=== PATIENT | female | born 1990 | race Caucasian/White ===

== ENCOUNTER 2021-10-17 04:07 | Inpatient (IN) ==
[2021-10-17 11:20] LABS: Influenza A PCR Negative (Negative); Influenza B PCR Negative (Negative); Resp. Syncytial Virus PCR Negative (Negative)
[2021-10-17 11:55] LABS: SARS-CoV-2 by PCR (In House) Negative (Negative)
[2021-10-17] MEDS ORDERED: *HR* LORazepam 2 MG/ML VIAL IM PRN (14:59)
[2021-10-17] MEDS ORDERED: MOM Conc 10 ML UD.LIQ PO PRN (14:59)
[2021-10-17] MEDS ORDERED: Mag Hydrox/Al Hydrox/Simeth 30 ML UDC PO PRN (14:59)
[2021-10-17] MEDS ORDERED: Acetaminophen 325 MG TABLET PO PRN (14:59)
[2021-10-17] MEDS ORDERED: traZODone 50 MG TABLET PO PRN (14:59)
[2021-10-17] MEDS ORDERED: Haloperidol Lactate 5 MG/ML VIAL IM PRN (14:59)
[2021-10-17] MEDS: hydrOXYzine pamoate 25 MG CAPSULE PO PRN (20:43)
[2021-10-17] MEDS: traZODone 50 MG TABLET PO SCH (20:43)
[2021-10-18] MEDS: ARIPiprazole 10 MG TABLET PO SCH (10:52)
[2021-10-18] MEDS: hydrOXYzine pamoate 25 MG CAPSULE PO PRN (19:08)
[2021-10-18] MEDS: haloperidoL 5 MG TABLET PO PRN (19:21)
[2021-10-18] MEDS: *HR* LORazepam 1 MG TABLET PO PRN (19:21)
[2021-10-18] MEDS: traZODone 50 MG TABLET PO SCH (21:00)
[2021-10-19] MEDS: ARIPiprazole 10 MG TABLET PO SCH (09:39)
[2021-10-19] MEDS: hydrOXYzine pamoate 25 MG CAPSULE PO PRN ×2 (09:39→20:44)
[2021-10-19] MEDS: haloperidoL 5 MG TABLET PO PRN (14:30)
[2021-10-19] MEDS: *HR* LORazepam 1 MG TABLET PO PRN (14:30)
[2021-10-19] MEDS: traZODone 50 MG TABLET PO SCH (20:44)
[2021-10-20] MEDS: ARIPiprazole 10 MG TABLET PO SCH (10:29)
[2021-10-20] MEDS: hydrOXYzine pamoate 25 MG CAPSULE PO PRN (20:29)
[2021-10-20] MEDS: traZODone 50 MG TABLET PO SCH (20:29)
[2021-10-21] MEDS: ARIPiprazole 10 MG TABLET PO SCH (09:11)
[2021-10-21] MEDS: hydrOXYzine pamoate 25 MG CAPSULE PO PRN ×2 (17:43→20:20)
[2021-10-21] MEDS: *HR* LORazepam 1 MG TABLET PO PRN (18:30)
[2021-10-21] MEDS: haloperidoL 5 MG TABLET PO PRN (18:31)
[2021-10-21] MEDS: traZODone 50 MG TABLET PO SCH (20:20)
[2021-10-22] MEDS: ARIPiprazole 10 MG TABLET PO SCH (08:50)
[2021-10-22] MEDS: *HR* LORazepam 1 MG TABLET PO PRN (14:34)
[2021-10-22] MEDS: haloperidoL 5 MG TABLET PO PRN (14:34)
[2021-10-22] MEDS: traZODone 50 MG TABLET PO SCH (21:40)
[2021-10-23] MEDS: ARIPiprazole 10 MG TABLET PO SCH ×2 (09:24→20:23)
[2021-10-23] MEDS: traZODone 50 MG TABLET PO SCH (20:23)
[2021-10-23] MEDS: hydrOXYzine pamoate 25 MG CAPSULE PO PRN (20:23)
[2021-10-24] MEDS: hydrOXYzine pamoate 25 MG CAPSULE PO PRN (21:24)
[2021-10-24] MEDS: ARIPiprazole 10 MG TABLET PO SCH (21:25)
[2021-10-24] MEDS: traZODone 50 MG TABLET PO SCH (21:25)
[2021-10-25] MEDS: traZODone 50 MG TABLET PO SCH (20:56)
[2021-10-25] MEDS: ARIPiprazole 10 MG TABLET PO SCH (20:56)
[2021-10-26] MEDS ORDERED: Paliperidone Palmitate 156 MG/ML SYRINGE IM SCH (08:00)
[2021-10-26 10:34] VITALS: BP 118/79; PULSE 84; TEMP 98.1; O2SAT 96
[2021-10-27] MEDS ORDERED: Paliperidone Palmitate 156 MG/ML SYRINGE IM SCH (08:00)
== END 2021-10-26 14:00 | disposition home or self-care (01) | DRG 885 ==
LOC: EMEROOARM 04:07 → 1ANU 14:55
PROVIDERS: ADMIT Psychiatry & Neurology Psychiatry; ATTEND Psychiatry & Neurology Psychiatry

== ENCOUNTER 2021-12-17 14:30 | Inpatient (IN) ==
[2021-12-17] MEDS ORDERED: hydrOXYzine pamoate 25 MG CAPSULE PO ONE (18:42)
[2021-12-17 20:39] LABS: Influenza A PCR Negative (Negative); Influenza B PCR Negative (Negative); Resp. Syncytial Virus PCR Negative (Negative)
[2021-12-17 20:40] LABS: SARS-CoV-2 by PCR (In House) Negative (Negative)
[2021-12-17] MEDS ORDERED: Acetaminophen 325 MG TABLET PO PRN (20:58)
[2021-12-17] MEDS ORDERED: *HR* LORazepam 2 MG/ML VIAL IM PRN (20:58)
[2021-12-17] MEDS ORDERED: Haloperidol Lactate 5 MG/ML VIAL IM PRN (20:58)
[2021-12-17] MEDS ORDERED: QUEtiapine Fumarate 25 MG TABLET PO PRN (21:00)
[2021-12-18] MEDS: hydrOXYzine pamoate 25 MG CAPSULE PO PRN (07:12)
[2021-12-18] MEDS: *HR* LORazepam 1 MG TABLET PO PRN ×2 (07:36→21:08)
[2021-12-18] MEDS: haloperidoL 5 MG TABLET PO PRN ×2 (07:36→21:07)
[2021-12-18] MEDS ORDERED: MOM Conc 10 ML UD.LIQ PO PRN (13:15)
[2021-12-18] MEDS ORDERED: Mag Hydrox/Al Hydrox/Simeth 30 ML UDC PO PRN (13:15)
[2021-12-18] MEDS ORDERED: Paliperidone Palmitate 234 MG/1.5 ML SYRINGE IM SCH (14:00)
[2021-12-19] MEDS: haloperidoL 5 MG TABLET PO PRN ×2 (10:20→19:36)
[2021-12-19] MEDS: *HR* LORazepam 1 MG TABLET PO PRN ×2 (10:20→19:36)
[2021-12-19] MEDS: hydrOXYzine pamoate 25 MG CAPSULE PO PRN (10:20)
[2021-12-19] MEDS: QUEtiapine Fumarate 100 MG TABLET PO SCH (21:25)
[2021-12-20] MEDS: hydrOXYzine pamoate 25 MG CAPSULE PO PRN (17:40)
[2021-12-20] MEDS: haloperidoL 5 MG TABLET PO PRN (19:03)
[2021-12-20] MEDS: *HR* LORazepam 1 MG TABLET PO PRN (19:03)
[2021-12-20] MEDS: QUEtiapine Fumarate 100 MG TABLET PO SCH (20:21)
[2021-12-21] MEDS: hydrOXYzine pamoate 25 MG CAPSULE PO PRN ×2 (12:43→19:36)
[2021-12-21] MEDS: QUEtiapine Fumarate 100 MG TABLET PO SCH (21:48)
[2021-12-22] MEDS ORDERED: Paliperidone Palmitate 156 MG/ML SYRINGE IM SCH (09:00)
[2021-12-22] MEDS: hydrOXYzine pamoate 25 MG CAPSULE PO PRN ×2 (12:38→20:59)
[2021-12-22] MEDS: QUEtiapine Fumarate 100 MG TABLET PO SCH (20:59)
[2021-12-23] MEDS: carBAMazepine 200 MG TABLET PO SCH (20:19)
[2021-12-23] MEDS: QUEtiapine Fumarate 100 MG TABLET PO SCH (20:19)
[2021-12-23] MEDS: hydrOXYzine pamoate 25 MG CAPSULE PO PRN (20:19)
[2021-12-24] MEDS: carBAMazepine 200 MG TABLET PO SCH ×2 (10:06→20:11)
[2021-12-24] MEDS: hydrOXYzine pamoate 25 MG CAPSULE PO PRN ×2 (12:39→20:11)
[2021-12-24] MEDS: haloperidoL 5 MG TABLET PO PRN (18:54)
[2021-12-24] MEDS: QUEtiapine Fumarate 100 MG TABLET PO SCH (20:11)
[2021-12-25] MEDS: carBAMazepine 200 MG TABLET PO SCH ×2 (08:39→20:17)
[2021-12-25] MEDS: hydrOXYzine pamoate 25 MG CAPSULE PO PRN (16:20)
[2021-12-25] MEDS: *HR* LORazepam 1 MG TABLET PO PRN (17:51)
[2021-12-25] MEDS: haloperidoL 5 MG TABLET PO PRN (17:51)
[2021-12-25] MEDS: QUEtiapine Fumarate 100 MG TABLET PO SCH (20:16)
[2021-12-26] MEDS: carBAMazepine 200 MG TABLET PO SCH ×2 (09:22→20:53)
[2021-12-26] MEDS: QUEtiapine Fumarate 100 MG TABLET PO SCH (20:53)
[2021-12-26] MEDS: hydrOXYzine pamoate 25 MG CAPSULE PO PRN (20:53)
[2021-12-27] MEDS: carBAMazepine 200 MG TABLET PO SCH (08:33)
[2021-12-27] MEDS: hydrOXYzine pamoate 25 MG CAPSULE PO PRN (16:21)
[2021-12-27] MEDS ORDERED: haloperidoL 1 MG TABLET PO ONE (16:45)
[2021-12-27] MEDS: haloperidoL 5 MG TABLET PO PRN (17:51)
[2021-12-27] MEDS: CarBAMazepine XR (12 hr) 100 MG TAB PO SCH (17:51)
[2021-12-27] MEDS: QUEtiapine Fumarate 100 MG TABLET PO SCH (20:21)
[2021-12-28] MEDS: hydrOXYzine pamoate 25 MG CAPSULE PO PRN ×2 (10:50→17:27)
[2021-12-28] MEDS: CarBAMazepine XR (12 hr) 100 MG TAB PO SCH (18:07)
[2021-12-28] MEDS: QUEtiapine Fumarate 100 MG TABLET PO SCH (20:57)
[2021-12-29 09:12] LABS: Basophils % 0.5 %; Eosinophils # 0.3 K/mcL (0.0-0.6); Eosinophils % 3.8 %; Hematocrit 45.4 % (35.3-44.9); Immature Granulocytes % 0.3 % (0-4); Lymphocytes # 2.7 K/mcL (0.6-4.6); Lymphocytes % 36.3 %; Mean Corpuscular Hemoglobin 27.8 pg (28.0-33.3); Mean Corpuscular Volume 84.2 fL (83.0-100.0); Mean Platelet Volume 9.8 fL (9.4-12.4); Monocytes # 0.4 K/mcL (0.0-1.3); Monocytes % 5.4 %; Platelet Count 250 K/mcL (140-400); Red Blood Count 5.39 M/mcL (3.82-4.97); Red Cell Distribution Width 14.1 % (11.5-14.5); Segmented Neutrophils % 53.7 %; White Blood Count 7.4 K/mcL (4.3-11.1)
[2021-12-29 12:26] LABS: Alanine Aminotransferase 15 Units/L (7-52); Albumin 4.2 g/dL (3.5-5.7); Albumin/Globulin Ratio 1.2 (1.1-2.2); Alkaline Phosphatase 64 Units/L (34-104); Aspartate Amino Transferase 16 Units/L (13-39); BUN/Creatinine Ratio 25 (6-26); Bilirubin,Total 0.3 mg/dL (0.3-1.0); Blood Urea Nitrogen 17 mg/dL (6-20); Calcium 9.2 mg/dL (8.6-10.3); Carbamazepine (Tegretol) 9 mcg/mL (4-12); Carbon Dioxide 26 mEq/L (23-29); Chloride 102 mEq/L (98-107); Globulin 3.5 g/dL (2.4-3.5); Glucose 86 mg/dL (70-105); Osmolality,Calculated 281 (280-300); Potassium 4.1 mEq/L (3.5-5.1); Sodium 135 mEq/L (136-145); Total Protein 7.7 g/dL (6.4-8.9)
[2021-12-29] MEDS: hydrOXYzine pamoate 25 MG CAPSULE PO PRN (13:36)
[2021-12-29] MEDS: CarBAMazepine XR (12 hr) 100 MG TAB PO SCH (18:15)
[2021-12-29] MEDS: QUEtiapine Fumarate 100 MG TABLET PO SCH (21:07)
[2021-12-30] MEDS: *HR* LORazepam 1 MG TABLET PO PRN (12:09)
[2021-12-30] MEDS: haloperidoL 5 MG TABLET PO PRN (12:09)
[2021-12-30] MEDS: CarBAMazepine XR (12 hr) 100 MG TAB PO SCH (17:06)
[2021-12-30] MEDS: QUEtiapine Fumarate 100 MG TABLET PO SCH (20:58)
[2021-12-31] MEDS: hydrOXYzine pamoate 25 MG CAPSULE PO SCH ×2 (15:45→20:45)
[2021-12-31] MEDS: CarBAMazepine XR (12 hr) 100 MG TAB PO SCH (17:12)
[2021-12-31] MEDS: *HR* LORazepam 1 MG TABLET PO PRN (17:13)
[2021-12-31] MEDS: haloperidoL 5 MG TABLET PO PRN (17:13)
[2021-12-31] MEDS ORDERED: QUEtiapine Fumarate 100 MG TABLET PO SCH (21:00)
[2022-01-01] MEDS: hydrOXYzine pamoate 25 MG CAPSULE PO SCH ×2 (09:57→20:09)
[2022-01-01] MEDS: QUEtiapine Fumarate 25 MG TABLET PO PRN (16:47)
[2022-01-01] MEDS: CarBAMazepine XR (12 hr) 100 MG TAB PO SCH (17:44)
[2022-01-01] MEDS: QUEtiapine Fumarate 100 MG TABLET PO SCH (20:10)
[2022-01-01] MEDS ORDERED: QUEtiapine Fumarate 25 MG TABLET PO PRN (21:00)
[2022-01-02] MEDS: hydrOXYzine pamoate 25 MG CAPSULE PO SCH ×2 (08:49→20:24)
[2022-01-02] MEDS: CarBAMazepine XR (12 hr) 100 MG TAB PO SCH (17:47)
[2022-01-02] MEDS: QUEtiapine Fumarate 25 MG TABLET PO PRN (18:03)
[2022-01-02] MEDS: QUEtiapine Fumarate 100 MG TABLET PO SCH (20:24)
[2022-01-03] MEDS: hydrOXYzine pamoate 25 MG CAPSULE PO SCH ×2 (09:11→20:35)
[2022-01-03] MEDS: QUEtiapine Fumarate 100 MG TABLET PO SCH ×2 (15:14→20:34)
[2022-01-03] MEDS: haloperidoL 5 MG TABLET PO PRN (15:28)
[2022-01-03] MEDS ORDERED: CarBAMazepine XR (12 hr) 100 MG TAB PO SCH ×2 (18:00→21:00)
[2022-01-04] MEDS ORDERED: hydrOXYzine pamoate 25 MG CAPSULE PO PRN (08:49)
[2022-01-04] MEDS: hydrOXYzine pamoate 25 MG CAPSULE PO SCH ×2 (10:02→21:01)
[2022-01-04] MEDS: QUEtiapine Fumarate 100 MG TABLET PO SCH ×2 (15:26→21:01)
[2022-01-04] MEDS ORDERED: CarBAMazepine XR (12 hr) 100 MG TAB PO SCH (21:00)
[2022-01-05] MEDS: hydrOXYzine pamoate 25 MG CAPSULE PO SCH (09:20)
[2022-01-05 10:34] VITALS: BP 118/76; PULSE 73; TEMP 98.6; O2SAT 93
[2022-01-05 13:03] LABS: Influenza A PCR Negative (Negative); Influenza B PCR Negative (Negative); Resp. Syncytial Virus PCR Negative (Negative); SARS-CoV-2 by PCR (In House) Negative (Negative)
[2022-01-05] MEDS: QUEtiapine Fumarate 100 MG TABLET PO SCH (16:18)
== END 2022-01-05 16:30 | disposition home or self-care (01) | DRG 750 ==
LOC: EMEROOARM 14:30 → 1ANU 20:53
PROVIDERS: ADMIT Psychiatry & Neurology Psychiatry; ATTEND Psychiatry & Neurology Psychiatry